=== PATIENT | female | born 1995 | race Caucasian/White ===

== ENCOUNTER → 2018-04-20 | Outpatient (CLI) | payer BC ==
--- NOTE | 2018-04-20 12:19 | RADIOLOGY IMAGING REPORT ---
FACILITY: [facility] [place] PATIENT NAME: Gianna Cope : 1995 MR: [id number] V: [id number] EXAM DATE: ORDERING PHYSICIAN: BARTOLO GAGNON TECHNOLOGIST: Location: [facility] Patient: Gianna Cope : 1995 Visit/Account:[id number] Date of Sevice: 04/20/2018 KUB SINGLE VIEW ABDOMEN HISTORY: pain and constipation COMPARISON: None. FINDINGS: IUD is noted. Moderate colonic stool burden without evidence of obstruction, pneumatosis, free air o r focal wall thickening. Lung bases are clear. No pathologic calcification. Bones are unremarkable . IMPRESSION: Moderate colonic stool burden. Otherwise, unremarkable Report Dictated By: Ronny Haile MD at 04/20/2018 12:14 PM Report E-Signed By: Ronny Haile MD at 04/20/2018 12:15 PM WSN:[id number]
== END ==
LOC: RAD 11:42
PROVIDERS: ATTEND Physician Assistant
DX: K56.41 Fecal impaction (principal)
CPT/HCPCS: 74018

== ENCOUNTER → 2018-04-20 | Outpatient (REF) | payer BC ==
[2018-04-20 12:02] LABS: PLATELET COUNT, AUTOMATED 316 K/uL (150-450)
== END ==
LOC: ZZSENDIN 11:53
PROVIDERS: ATTEND Physician Assistant
DX: R10.9 Unspecified abdominal pain (principal)
CPT/HCPCS: 82040; 82247; 82310; 82374; 82435; 82565; 82947; 83690; 84075; 84132; 84155; 84295; 84443; 84450; 84460; 84520; 85025